=== PATIENT | male | born 1955 ===

== ENCOUNTER 2020-10-02 20:45 | Inpatient (IN) | payer MEDICAID, MEDICARE ==
[2020-10-02] MEDS ORDERED: RT-ALBUTEROL HFA 8.5 GM INHALER IH PRN (21:15)
[2020-10-02] MEDS ORDERED: guaiFENesin SYRUP 100 MG/5 ML 10 ML (ROBITUSSIN SF) PO PRN (21:15)
[2020-10-02] MEDS ORDERED: ENOXAPARIN 40 MG/0.4 ML (LOVENOX) SYR SC SCH (21:15)
[2020-10-02] MEDS ORDERED: ACETAMINOPHEN 325 MG TABLET PO PRN (21:15)
[2020-10-02] MEDS ORDERED: NS IV 1000 ML 1,000 ML IV SCH (21:15)
[2020-10-02] MEDS ORDERED: ONDANSETRON 4 MG/2 ML (SDV) Z0FRAN IV PRN (21:15)
[2020-10-02] MEDS ORDERED: ETOMIDATE IV SOLN 20 MG/10 ML VIAL IV ONE (22:39)
[2020-10-02] MEDS ORDERED: ROCURONIUM 10 MG/ML 5 ML SYRINGE IV ONE (22:39)
--- NOTE | 2020-10-02 23:02 | Short Stay Summary-Hospitalist ---
History of Present Illness HPI/Chief Complaint Pt is a 65yoAAM who presented as a transfer from [facility] due to acute respiratory failure due to COVID19. He presented in extremis and was accopmanied by ER staff. He reported he was short of breath and his sats for EMS en route dropped drastically to the 50s on CPAP. He and I discussed the need for intubation and what that would mean. He was agreeable to short term ventilation only. I specifically asked him with multiple staff in the room if he needed assisted intubation or tracheostomy if he would be ok with that and he adamantly declined. When asked about if he were so ill that his heart stopped beating and if he would want CPR he said "Just let me go peacefully." I confirmed that this means he would and he shook his head and said "let me go." Due to the severity of his illness I was unable to get any other information about his recent illness. All other history is obtained from the record. He was seen at [facility] as he was not feeling well. [facility] local [facility] where there have been multiple recent COVID cases. He had complained to the outside facility that he had chest pain. He also reported that he had fallen and hit his head as well. He complained to them of nausea, vomiting, and headache as well. CT head was done and was negative for ICH. He was noncompliant with HFNC and was placed on BiPAP and transferred here for further care. Source: patient Date Seen 10/02/20 Time Seen by a Provider: 22:28 Attending Physician Thuy Rankin MD PCP No,Local Physician Referring Physician Date of Admission Home Medications & Allergies Home Medications Reviewed patient Home Medication Reconciliation performed by pharmacy medication reconciliations hearing health technician and/or nursing. Patients Allergies have been reviewed. Allergies Allergies Coded Allergies No Allergy Information Available (Unverified10/02/20) Past Tfbcfoc-Sbhqef-Xhbukh Hx Patient Social History Tobacco Use?: Yes Smoking Status: Current Everyday Smoker Substance type: Opiates/Opioids Family Medical History Reviewed Nursing Family Hx No Pertinent Family Hx Review of Systems ROS-Unable to Obtain: limited by clinical condition Constitutional: see HPI Physical Exam Physical Exam Vital Signs Capillary Refill : Height, Weight, BMI Height: '" Weight: lbs. oz. kg; BMI Method: General Appearance: Anxious, Chronically ill, Severe Distress, Thin HEENT: PERRL/EOMI, Moist Mucous Membranes; No Scleral Icterus (L), No Scleral Icterus (R) Neck: Supple; No JVD Respiratory: Accessory Muscle Use, Decreased Breath Sounds, Respiratory Distress, Rhonci; No Wheezing Cardiovascular: Regular Rate, Rhythm, No Murmur Gastrointestinal: Normal Bowel Sounds, Non Tender, Soft Extremity: No Calf Tenderness, No Pedal Edema, Other (femoral line in right groin) Neurologic/Psychiatric: Alert, Oriented x3 Results Results/Procedures Labs Patient resulted labs reviewed. Imaging: Reviewed Imaging Report Imaging CT Head; No acute large vessel fraction, intracranial bleed, or focal mass. CXR with bilateral infiltrate, right worse than left Short Stay Diagnosis Discharge Diagnosis-Short Stay Admission Diagnosis Acute respiratory failure due to COVID19 Final Discharge Diagnosis Acute respiratory failure due to COVID19 Conclusion Plan Acute respiratory failure due to COVID19 Cardiac arrest Acute Renal failure Pt presented in extremis Accompanied by ER staff due to profound hypoxia en route for intubation Discussed code status as above and witness by multiple staff members in the room- patient ok with short term ventilation only and wants to be a DNR Intubated by Zeus Pope NP in ER with color change and bilateral breath sounds Shortly after intubation patient had a rhythm change on the monitor and went into a PEA arrest, natural allowed in accordance with his wishes TOD 1040 I called and updated [facility] ER physician and to see if request d-dimer was resulted, no results available I discussed the case with Dr Melo who is our loader helper [facility] Diagnosis/Problems Diagnosis/Problems (1) Cardiac arrest Status: Acute (2) Acute respiratory failure Qualifiers: Qualified Codes: J96.01 - Acute respiratory failure with hypoxia (3) COVID-19 Status: Acute (4) Acute renal failure THUY RANKIN MD Oct 02, 2020 23:02
[2020-10-03] MEDS ORDERED: MAGNESIUM 1 GM/100 ML IVPB 100 ML IV SCH (06:00)
[2020-10-03] MEDS ORDERED: KCL 20 MEQ TAB (K-DUR) PO SCH (06:00)
[2020-10-03] MEDS ORDERED: POTASSIUM CL 10MEQ/50ML IVPB 50 ML IV SCH (06:00)
--- OUTSIDE RECORDS SUMMARY | 2020-10-03 06:25 | XMS REPORT | Clinical Summary ---
Author Author [facility] Organization [facility] Address Unknown Phone Unavailable Care Team Providers Care Wellness Specialist Name Role Phone Ashkan Patton MD PCP Source Comments Some departments are not documenting in the electronic medical record. If you d o not see the information that you expected, contact Release of Information in [facility] [employer] Information Management department at [phone] for further assistan ce in locating additional records.[facility] Allergies Comments Active Allergy Reactions Severity Noted Date Aspirin UNKNOWN Low 05/12/2016 Ibuprofen STOMACH UPSET Low 05/12/2016 Tramadol VOMITING Low 05/12/2016 Medications End Date Status Medication Sig Dispensed Refills Start Date Active ALPRAZolam(+) (XANAX) 2 TAKE 1 TABLET 2 mg tablet TWICE A DAY 7 NEEDED FOR ANXIETY Active FLUPHENAZINE DECANOATE Inject to 0 (PROLIXIN DECANOATE IJ) area(s) as directed every 30 days. Active HYDROcodone/acetaminophen Take 1-2 15 tablet 0 (NORCO) 5/325 mg tablet tablets by 7 mouth every 4 hours as needed for Pain Max 8 tabs/day Active Problems No known active problems Social History Date Tobacco Use Types Packs/Day Years Used Current Every Day Smoker Smokeless Tobacco: Current User Tobacco Cessation: Ready to Quit: No; Co unseling Given: Yes Comments Alcohol Use Standard Drinks/Week Yes 0 (1 standard drink = 0.6 o z pure alcohol) Sex Assigned at Date Recorded Not on file Last Filed Vital Signs Reading Time Taken Comments Vital Sign 97/69 11/11/2016 3:40 PM CDT Blood Pressure 76 11/11/2016 2:03 PM CDT Pulse 37 C (98.6 F) 11/11/2016 2:03 PM CDT Temperature 17 11/11/2016 2:03 PM CDT Respiratory Rate 99% 11/11/2016 3:40 PM CDT Oxygen Saturation - - Inhaled Oxygen Concentration 63.5 kg (140 lb) 11/11/2016 2:03 PM CDT Weight 175.3 cm (5' 9") 11/11/2016 2:03 PM CDT Height 20.67 11/11/2016 2:03 PM CDT Body Mass Index Plan of Treatment Health Maintenance Due Date Last Done Comments MEDICARE ANNUAL WELLNESS 1955 VISIT HIV SCREENING 1971 DTAP/TDAP VACCINES (1 - 1974 Tdap) HEPATITIS C SCREENING 1974 PHYSICAL (COMPREHENSIVE) 1974 EXAM COLORECTAL CANCER 2006 SCREENING SHINGLES RECOMBINANT 2006 VACCINE (1 of 2) INFLUENZA VACCINE 11/20/2020 Results Not on filefrom Last 3 Months Insurance Type Payer Benefit Subscriber ID Effective Phone Address Plan / Dates Group Medicare UHC MEDICARE UHC [id number] 2019-P MEDICARE resent REPLACEMEN T Advance Directives 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
--- OUTSIDE RECORDS SUMMARY | 2020-10-03 06:25 | XMS REPORT | Clinical Summary ---
Author Author [facility] Organization [facility] Address Unknown Phone Unavailable Care Team Providers Care Superintendent Gas Distribution Name Role Phone [facility] PCP [phone] Allergies Comments Active Allergy Reactions Severity Noted Date Aspirin Other (See Low 05/12/2016 Comments) Ibuprofen Nausea And Low 05/12/2016 Vomiting Medications End Date Status Medication Sig Dispensed Refills Start Date Active naltrexone (DEPADE) 50 mg Take 50 mg by 0 04/20 tablet mouth daily. 1 Active traZODone (DESYREL) 50 MG Take 50 mg by 0 04/20 tablet mouth 1 nightly. Active albuterol 0 (PROAIR/PROVENTIL/VENTOLI 1 N) 90 mcg/actuation HFA inhaler Active benztropine (COGENTIN) 1 Take 1 tablet 30 tablet 0 MG tablet (1 mg total) 1 by mouth daily. Active Problems Not on file Social History Date Tobacco Use Types Packs/Day Years Used Current Every Day Smoker 1 Smokeless Tobacco: Never Used Comments Alcohol Use Standard Drinks/Week heavy daily use Yes 0 (1 standard drink = 0.6 o z pure alcohol) Sex Assigned at Date Recorded Not on file Last Filed Vital Signs Reading Time Taken Comments Vital Sign 114/67 05/29/2020 11:52 PM CDT Blood Pressure 86 05/29/2020 11:52 PM CDT Pulse 36.7 C (98 F) 05/29/2020 7:53 PM CDT Temperature 18 05/30/2020 12:18 AM CDT Respiratory Rate 97% 05/30/2020 12:18 AM CDT Oxygen Saturation - - Inhaled Oxygen Concentration 77.1 kg (170 lb) 05/14/2020 11:42 AM CDT Weight 174.6 cm (5' 8.75") 02/27/2020 7:14 PM RECRUITING MANAGER Height 25.29 02/27/2020 7:14 PM RECRUITING MANAGER Body Mass Index Plan of Treatment Health Maintenance Due Date Last Done Comments Hepatitis C Screen 1955 Medicare Annual Wellness 1955 Spirometry # 1955 Td/Tdap# 1955 Tobacco Cessation 1955 Counseling # Pneumococcal Vaccine: 65+ 1962 Years (1 of 2 - PPSV23) Pneumococcal Vaccine: 1961 Pediatrics (0 to 5 Years) and At-Risk Patients (6 to 64 Years) (1 of 2 - PPSV23) Colorectal Screening via 2006 Colonoscopy Zoster Vaccine# (1 of 2) 2006 Influenza Vaccine (#1) 2020 COVID-19 Vaccine Completed 04/27/2020 Results Not on filefrom Last 3 Months Insurance Type Payer Benefit Subscriber ID Effective Phone Address Plan / Dates Group MEDICARE REPLACEMENT PLAN HU[employer] [id number] 2019-P MEDICARE resent [place]ICAID ([place] [id number] 2020 [employer] -Present [id number] Nathanael Ni Personal/F Self 1955 [id number] [facility] [place], [place] [address] Advance Directives For more information, please contact: [phone] 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
--- NOTE | 2020-10-03 11:23 | Procedure/Intervention Note ---
Procedures/Interventions Date of ETT Placement: Oct 03, 2020 Time of ETT Placement: 11:20 Intubation Method: orotracheal Tube Size: 7.5 Medications: Etomidate, Rocuronium Positive End Tide CO2: Yes Breath Sounds after Intubation: bilateral-equal Intubation Complications: no complications Post Intubation Xray: No Patient was a direct admit to the ICU from outside hospital. Upon EMS coming through the emergency room in route to the ICU patient was in obvious respiratory distress on CPAP at 10 cm of H2O with SPO2 of 75%. I accompanied the paramedics to the ICU with intent to intubate. Upon arrival to ICU saturation had declined to about 60%. Upon arrival to ICU Dr. Cade was p resent, patient was asked about advanced wishes. He was asked if he would want a tracheostomy tube should it become necessary and his response was no. He was also asked if he would want resuscitation with CPR if his heart should stop at any point and his response was no. We then gave 20 mg of etomidate and 50 mg of rocuronium and was intubated with a 7.5 endotracheal tube with breath sounds bilaterally, color change in the colorimeter. Unable to get oxygen saturation. Less than 1 minute after intubation and confirmation of tube placement clinically he degenerated from sinus tach to a polymorphic V. tach pulseless, then pulseless electrical activity. Per his wishes no resuscitative efforts were made. JOÃO MCKEON APRN Oct 03, 2020 11:23
== END 2020-10-02 22:40 | disposition expired | DRG 177 ==
LOC: ICU 22:28
PROVIDERS: ADMIT Family Medicine; ATTEND Family Medicine
PROC: 0BH17EZ Insertion of Endotracheal Airway into Trachea, Via Natural or Artificial Opening (ICD-10-PCS; principal; 2020-10-02)
DX: U07.1 COVID-19 (principal); J96.01 Acute respiratory failure with hypoxia; N17.9 Acute kidney failure, unspecified; I46.8 Cardiac arrest due to other underlying condition; F17.210 Nicotine dependence, cigarettes, uncomplicated; Z66 Do not resuscitate; Z91.81 History of falling; Z73.0 Burn-out